=== PATIENT | male | born 1985 | race Caucasian/White ===

== ENCOUNTER 2016-08-13 02:00 | Emergency (ER) | payer BC ==
--- NOTE | 2016-08-13 02:16 | PDOC ---
History of Present Illness - General Chief Complaint: Pain Stated Complaint: HEADACHE Time Seen by Provider: 08/13/16 02:10 History Source: Patient Exam Limitations: No Limitations - History of Present Illness Initial Comments: 08/13/16 02:11 31 y m lomg hx of head and neck pains on and off. sts usually has pain on the left side of the back of his head but now is lthe right side for the past 3 days. tales [id number] w/ ~4 h relief. nausea at times but no vomiting. no dizziness. no paresthesias. no weakness. no visual changes. in ed, in nad. gait ok. Review of Systems - Review of Systems Able to Perform ROS?: Yes Is the patient limited Sammarinese proficient: No Constitutional: No: Symptoms Reported HEENTM: No: Symptoms Reported Respiratory: No: Symptoms reported Cardiac (ROS): No: Symptoms Reported : Yes: Symptoms Reported, See HPI Musculoskeletal: No: Symptoms Reported Integumentary: No: Symptoms Reported Neurological: Yes: Symptoms reported, See HPI, Headache All Other Systems: Reviewed and Negative *Physical Exam - Physical Exam General Appearance: Yes: Nourished, Appropriately Dressed. No: Apparent Distress HEENT: positive: EOMI, FRANKIE, Normal ENT Inspection, Other (no ptosis or anisocoria) Neck: positive: Tender (mild tenderness accipital insertion trapz (occipital nerve area)). negative: Carotid bruit Respiratory/Chest: negative: Respiratory Distress Cardiovascular: positive: Regular Rhythm, Regular Rate Musculoskeletal: positive: Normal Inspection. 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
[2016-08-13 02:29] VITALS: BP 113/75; PULSE 66; TEMP 98.4; BMI 21.2
== END 2016-08-13 02:34 | disposition home or self-care (01) ==
LOC: FER 02:00
DX: R51 Headache (principal); G89.29 Other chronic pain
CPT/HCPCS: 99282-25